=== PATIENT | male | born 1940 | race Caucasian/White ===

== ENCOUNTER 2017-07-16 10:18 | Outpatient (CLI) | payer MEDICARE, OTHER | END 2017-07-16 10:19 | disposition home or self-care (01) | LOC: BICRAD 10:18 | PROVIDERS: ATTEND Internal Medicine Medical Oncology | DX: D72.829 Elevated white blood cell count, unspecified (principal); R05 Cough; J44.9 Chronic obstructive pulmonary disease, unspecified; I70.0 Atherosclerosis of aorta; J98.4 Other disorders of lung | CPT/HCPCS: 71046 ==

== ENCOUNTER 2019-01-19 13:40 | Outpatient (CLI) | payer MEDICARE, OTHER ==
--- NOTE | 2019-01-19 14:05 | RAD ---
CHEST TWO VIEWS: 01/19/19 INDICATION: Elevated white cell count and leukemia. COMPARISON: Prior exam dated 07/16/17. FINDINGS: Scattered areas of scarring stable. Heart size is normal. Left sided pleural thickening is stable. Os seous structures are unchanged. IMPRESSION: No evidence of pneumonia. POS: OFF
== END 2019-01-19 13:41 | disposition home or self-care (01) ==
LOC: BICRAD 13:40
PROVIDERS: ATTEND Internal Medicine Medical Oncology
DX: C91.10 Chronic lymphocytic leukemia of B-cell type not having achieved remission (principal)
CPT/HCPCS: 71046

== ENCOUNTER 2024-02-14 12:31 | Outpatient (CLI) | payer MEDICARE, OTHER | END 2024-02-14 12:32 | disposition home or self-care (01) | LOC: BICCT 12:31 | PROVIDERS: ATTEND Internal Medicine Hematology & Oncology | DX: R91.1 Solitary pulmonary nodule (principal); J98.11 Atelectasis; J94.8 Other specified pleural conditions; J92.9 Pleural plaque without asbestos; M53.86 Other specified dorsopathies, lumbar region | CPT/HCPCS: 71250 ==

== ENCOUNTER 2024-03-24 09:21 | Outpatient (CLI) | payer MEDICARE, OTHER ==
[2024-03-24] MEDS ORDERED: Magnevist 469MG/ML 20 ML VIAL ONE (12:36)
== END 2024-03-24 09:22 | disposition home or self-care (01) ==
LOC: MRI 09:21
PROVIDERS: ATTEND Internal Medicine Hematology & Oncology
DX: S34.111A Complete lesion of L1 level of lumbar spinal cord, initial encounter (principal); M47.816 Spondylosis without myelopathy or radiculopathy, lumbar region; M47.817 Spondylosis without myelopathy or radiculopathy, lumbosacral region; M48.061 Spinal stenosis, lumbar region without neurogenic claudication; M48.07 Spinal stenosis, lumbosacral region
CPT/HCPCS: 36415; 72158; 82565

== ENCOUNTER 2025-02-07 10:05 | Outpatient (CLI) | payer MEDICARE, OTHER | END 2025-02-07 10:06 | disposition home or self-care (01) | LOC: BICCT 10:05 | PROVIDERS: ATTEND Internal Medicine Hematology & Oncology | DX: R91.1 Solitary pulmonary nodule (principal); C91.10 Chronic lymphocytic leukemia of B-cell type not having achieved remission; F17.210 Nicotine dependence, cigarettes, uncomplicated; E27.8 Other specified disorders of adrenal gland; J98.4 Other disorders of lung | CPT/HCPCS: 71250 ==